=== PATIENT | male | born 1965 | race Caucasian/White ===

== ENCOUNTER 2017-02-16 09:41 | Emergency (ER) | payer BC, OTHER, SELFPAY ==
[~2017-02-16] VITALS: Ht 175.3 cm; Wt 93.2 kg
[~2017-02-16 09:41] MED LIST: /MELO7TA PO; CARI350T19 PO; FLEX10TA2 PO; HYDR7.5T38 PO; NICO21DI26 TD; TYLE325T5 PO; ZANT150T PO; [UNRECOGNIZED DRUG - OTHER] PO
[2017-02-16] MEDS ORDERED: MORP15TA2 PO (09:53)
[2017-02-16 11:21] LABS: BASO % 0.7 % (0.0-1.0); EOS # 0.1 K/mm3 (0.0-0.50); EOS % 1.4 % (0.0-3.0); LARGE UNSTAINED CELL # 0.3 K/mm3 (0.0-0.4); LARGE UNSTAINED CELL % 3.2 % (0.0-4.0); LYMPH # 2.3 K/mm3 (1.5-4.5); LYMPH % 25.4 % (24.0-44.0); MEAN CORPUSCULAR HEMOGLOBIN 31.7 pg (27.0-33.0); MEAN CORPUSCULAR HGB CONC 35.3 g/dl (32.0-36.5); MEAN CORPUSCULAR VOLUME 89.8 fl (80.0-96.0); MONO # 0.5 K/mm3 (0.0-0.8); MONO % 5.7 % (0.0-5.0); NEUTROPHILS # 5.3 K/mm3 (1.8-7.7); NEUTROPHILS % 63.6 % (36.0-66.0); PLATELET COUNT, AUTOMATED 266 k/mm3 (150-450); RED CELL DISTRIBUTION WIDTH 13.1 % (11.5-14.5); WHITE BLOOD COUNT 8.2 K/mm3 (4.0-10.0)
[2017-02-16 11:34] LABS: ANION GAP 8 MEQ/L (8-16); BLOOD UREA NITROGEN 11 MG/DL (7-18); CALCIUM LEVEL 8.6 MG/DL (8.5-10.1); CARBON DIOXIDE LEVEL 27 MEQ/L (21-32); CHLORIDE LEVEL 104 MEQ/L (98-107); GLOMERULAR FILTRATION RATE > 60.0 (>56); GLUCOSE, FASTING 103 MG/DL (70-105); POTASSIUM SERUM 3.6 MEQ/L (3.5-5.1); SODIUM LEVEL 139 MEQ/L (136-145)
[2017-02-16 11:52] LABS: ERYTHROCYTE SEDIMENTATION RATE 15 mm/hr (0-20)
[2017-02-16] MEDS ORDERED: BACT800T5 PO (11:58)
[2017-02-16] MEDS ORDERED: BACTRIM 160MG/800MG DS TAB PO ONE (12:00)
[2017-02-16 12:05] VITALS: BP 131/74
--- NOTE | 2017-02-16 17:47 | REP ---
Left knee series: Five views. History: Question foreign body anteriorly at the knee. Question infectious changes. Findings: There is soft-tissue swelling over the anterior tibial apophysis and over the anterior aspect of the patellar tendon on lateral film. No soft tissue gas or opaque foreign body is seen. There is some vascular calcification in the proximal calf. Bones, joints, and soft tissues are otherwise unremarkable. Mild patellar spurring is seen on the sunrise view. Impression: Soft-tissue swelling anterior to the patellar tendon and anterior to the tibial apophysis. No foreign body or soft tissue gas seen. Mild patellar spurring. Otherwise negative. Signed by Lionel Trevino MD 02/20/2017 08:08 A
== END 2017-02-16 12:09 | disposition home or self-care (01) ==
LOC: M ED 09:41
DX: L03.116 Cellulitis of left lower limb (principal); M76.9 Unspecified enthesopathy, lower limb, excluding foot; G89.29 Other chronic pain; F17.200 Nicotine dependence, unspecified, uncomplicated

== ENCOUNTER → 2017-11-06 | Outpatient (REF) | payer OTHER ==
[2017-11-06 15:04] LABS: VALPROIC ACID (DEPAKOTE) 30.1 UG/ML (50.0-100.0)
== END ==
LOC: M LAB REF 14:03
DX: Z51.81 Encounter for therapeutic drug level monitoring (principal)

== ENCOUNTER → 2018-07-30 | Outpatient (CLI) | payer MEDICAID, OTHER ==
[~2018-07-30] MED LIST changes: +BACT800T5 PO; +MORP15TA2 PO
[2018-07-30 18:53] LABS: HEMATOCRIT 44.9 % (42.0-52.0); HEMOGLOBIN 15.4 g/dl (13.5-17.5); MEAN CORPUSCULAR HEMOGLOBIN 31.6 pg (27.0-33.0); MEAN CORPUSCULAR HGB CONC 34.3 g/dl (32.0-36.5); MEAN CORPUSCULAR VOLUME 92.2 fl (80.0-96.0); PLATELET COUNT, AUTOMATED 289 10^3/uL (150-450); RED BLOOD COUNT 4.87 10^6/uL (4.30-6.10); WHITE BLOOD COUNT 10.4 10^3/uL (4.0-10.0)
[2018-07-30 19:20] LABS: ALT/SGPT 18 U/L (12-78); BILIRUBIN,TOTAL 0.5 MG/DL (0.2-1.0); BLOOD UREA NITROGEN 13 MG/DL (7-18); CALCIUM LEVEL 8.7 MG/DL (8.5-10.1); CARBON DIOXIDE LEVEL 28 MEQ/L (21-32); CHLORIDE LEVEL 102 MEQ/L (98-107); CREATININE FOR GFR 0.89 MG/DL (0.70-1.30); GLOMERULAR FILTRATION RATE > 60.0 (>56); GLUCOSE, FASTING 96 MG/DL (70-100); POTASSIUM SERUM 4.1 MEQ/L (3.5-5.1); SODIUM LEVEL 137 MEQ/L (136-145); TOTAL PROTEIN 7.4 GM/DL (6.4-8.2)
[2018-07-30 21:48] LABS: CHLAMYDIA DNA AMPLIFICATION NEGATIVE (NEGATIVE); GC DNA AMPLIFICATION NEGATIVE (NEGATIVE)
[2018-07-31 09:27] LABS: HEPATITIS B SURFACE ANTIGEN NEGATIVE (NEGATIVE)
[2018-07-31 09:56] LABS: HIV 1&2 SCREEN CENTAUR NEGATIVE (NEGATIVE)
== END ==
LOC: M LAB 18:21
PROVIDERS: ATTEND Family Medicine
DX: F11.20 Opioid dependence, uncomplicated (principal)

== ENCOUNTER 2018-08-24 17:00 | Inpatient (IN) | payer MEDICAID, OTHER ==
[~2018-08-24] VITALS: Ht 172.7 cm; Wt 95.5 kg
[2018-08-24] MEDS ORDERED: METH10CO PO (17:04)
[2018-08-24] MEDS: IPRATROPIUM 0.5MG/ALBUTEROL 2.5MG INH SOL UD 3ML (DUONEB)(J7620) NEB PRN ×3 (17:26→18:17)
[2018-08-24 17:28] LABS: BASO % 0.2 % (0.0-1.0); EOS % 0.1 % (0.0-3.0); HEMOGLOBIN 14.6 g/dl (13.5-17.5); LYMPH # 2.8 10^3/uL (1.5-4.5); LYMPH % 23.1 % (24.0-44.0); MEAN CORPUSCULAR HEMOGLOBIN 30.2 pg (27.0-33.0); MONO # 1.3 10^3/uL (0.0-0.8); MONO % 11.1 % (0.0-5.0); NEUTROPHILS # 7.8 10^3/uL (1.8-7.7); PLATELET COUNT, AUTOMATED 202 10^3/uL (150-450); RED BLOOD COUNT 4.83 10^6/uL (4.30-6.10)
[2018-08-24 17:39] LABS: INR 1.09; PROTHROMBIN TIME 14.2 SECONDS (12.1-14.4)
[2018-08-24 17:41] LABS: ABG BASE EXCESS 4.6 (-2.0-2.0); ABG HCO3 25.6 MEQ/L (22.0-26.0); ABG O2 SATURATION 89.1 % (95.0-99.0); ABG PARTIAL PRESSURE CO2 28.7 mmHg (35.0-45.0); ABG STANDARD HCO3 28.3 MEQ/L (22.0-26.0); ABG TOTAL CO2 26.5 MEQ/L (22.0-29.0); ABG pH (ARTERIAL) 7.569 UNITS (7.350-7.450)
[2018-08-24 17:46] LABS: ABG PARTIAL PRESSURE O2 44.7 mmHg (75.0-100.0)
[2018-08-24 17:55] LABS: ALBUMIN 3.5 GM/DL (3.2-5.2); ALT/SGPT 14 U/L (12-78); BILIRUBIN,DIRECT 0.3 MG/DL (0.0-0.2); BLOOD UREA NITROGEN 7 MG/DL (7-18); CALCIUM LEVEL 8.1 MG/DL (8.5-10.1); CARBON DIOXIDE LEVEL 33 MEQ/L (21-32); CHLORIDE LEVEL 97 MEQ/L (98-107); CK-MB VALUE MASS < 1.0 NG/ML (<3.6); CPK CREATINE PHOSPHOKINASE 100 U/L (39-308); CREATININE FOR GFR 0.86 MG/DL (0.70-1.30); GLOMERULAR FILTRATION RATE > 60.0 (>56); GLUCOSE, FASTING 90 MG/DL (70-100); POTASSIUM SERUM 3.9 MEQ/L (3.5-5.1); SODIUM LEVEL 136 MEQ/L (136-145); TOTAL PROTEIN 7.4 GM/DL (6.4-8.2); TROPONIN I < 0.02 NG/ML (< 0.10)
[2018-08-24 18:05] LABS: ABG BASE EXCESS 5.9 (-2.0-2.0); ABG HCO3 29.1 MEQ/L (22.0-26.0); ABG O2 SATURATION 87.7 % (95.0-99.0); ABG PARTIAL PRESSURE CO2 37.2 mmHg (35.0-45.0); ABG STANDARD HCO3 29.6 MEQ/L (22.0-26.0); ABG TOTAL CO2 30.2 MEQ/L (22.0-29.0); ABG pH (ARTERIAL) 7.511 UNITS (7.350-7.450)
[2018-08-24 18:06] LABS: INFLUENZA A AMPLIFICATION POSITIVE (NEGATIVE); INFLUENZA B AMPLIFICATION NEGATIVE (NEGATIVE)
[2018-08-24 18:07] LABS: ABG PARTIAL PRESSURE O2 45.3 mmHg (75.0-100.0)
[2018-08-24] MEDS ORDERED: methylPREDNISolone INJ 125 MG/2 ML VIAL (J2930) IV ONE (18:30)
[2018-08-24] MEDS ORDERED: IPRATROPIUM 0.5MG/ALBUTEROL 2.5MG INH SOL UD 3ML (DUONEB)(J7620) NEB PRN (19:00)
[2018-08-24] MEDS ORDERED: ACETAMINOPHEN TAB 650MG DOSE (2X325MG) PO PRN (19:00)
[2018-08-24] MEDS ORDERED: ONDANSETRON 4MG/2ML VIAL (J2405) IV PRN (19:00)
[2018-08-24] MEDS: IPRATROPIUM 0.5MG/ALBUTEROL 2.5MG INH SOL UD 3ML (DUONEB)(J7620) NEB SCH (19:59)
[2018-08-24] MEDS ORDERED: NICOTINE 21MG/24HR 1 EA TRANSDERMAL TD ONE (20:00)
[2018-08-24] MEDS: OSELTAMIVIR PHOSPHATE 75 MG CAP (TAMIFLU) PO SCH (21:26)
[2018-08-24 23:35] VITALS: BP 124/80
[2018-08-25 02:00] VITALS: BP 129/74
[2018-08-25] MEDS: IPRATROPIUM 0.5MG/ALBUTEROL 2.5MG INH SOL UD 3ML (DUONEB)(J7620) NEB SCH ×2 (02:00→08:19)
[2018-08-25 06:00] VITALS: BP 134/79
[2018-08-25 06:47] LABS: HEMATOCRIT 41.3 % (42.0-52.0); HEMOGLOBIN 13.8 g/dl (13.5-17.5); MEAN CORPUSCULAR HGB CONC 33.4 g/dl (32.0-36.5); MEAN CORPUSCULAR VOLUME 89.8 fl (80.0-96.0); PLATELET COUNT, AUTOMATED 207 10^3/uL (150-450); WHITE BLOOD COUNT 5.2 10^3/uL (4.0-10.0)
[2018-08-25 07:00] LABS: BLOOD UREA NITROGEN 11 MG/DL (7-18); CALCIUM LEVEL 8.6 MG/DL (8.5-10.1); CARBON DIOXIDE LEVEL 30 MEQ/L (21-32); CHLORIDE LEVEL 98 MEQ/L (98-107); CREATININE FOR GFR 0.84 MG/DL (0.70-1.30); GLOMERULAR FILTRATION RATE > 60.0 (>56); GLUCOSE, FASTING 235 MG/DL (70-100); SODIUM LEVEL 135 MEQ/L (136-145)
[2018-08-25] MEDS: TIOTROPIUM INHALER/CAPSULE (SPIRIVA) INH SCH ×2 (08:00→15:08)
--- NOTE | 2018-08-25 08:10 | REP ---
Portable chest, single AP upright view, 05:50 p.m.: Comparison is 01/11/2013. There are bibasilar infiltrates. The mid and upper lung zones are clear. Cardiac size is normal. The joseph, mediastinum, skeletal structures are unremarkable. Impression: Bibasilar infiltrates. Electronically Signed by Gagandeep Roberto MD 08/25/2018 08:03 A
--- NOTE | 2018-08-25 08:49 | HPE ---
DATE OF ADMISSION: 08/24/2018 CHIEF COMPLAINT: Shortness of breath, cough, malaise, subjective fevers and chills. HISTORY OF PRESENT ILLNESS: This is a 53-year-old gentleman with past medical history of opioid abuse now on methadone and significant smoking history who presents with chief complaint of three day history of malaise, cough, myalgias, wheezing, subjective fevers and chills. Patient reports for the last several days, he has had shortness of breath and difficulty breathing. He feels like he wants to cough but cannot cough out his phlegm. He has also subjectively felt warm and has had chills and audible wheezing. He does not have a regular doctor and does not know of any other significant past medical history. He does have a significant smoking history but has not been diagnosed with chronic obstructive pulmonary disease (COPD). He denies any recent sick contacts and reports that he has received a flu shot in the past year. COURSE IN THE EMERGENCY ROOM: First patient was noted to be hypoxic to 88% on room air and was flu positive. He did receive some nebulizers and steroids without improvement and is being admitted for chronic obstructive pulmonary disease (COPD) exacerbation and flu. REVIEW OF SYSTEMS: Negative 14 out of 14 systems except as noted above. PAST MEDICAL HISTORY: History of opioid abuse on methadone program. PAST SURGICAL HISTORY: He has had bilateral shoulder surgery. Spinal fusion surgery. MEDICATIONS: Patient's home medication is: - methadone 40 mg daily ALLERGIES: No known drug allergies. SOCIAL HISTORY: Patient smoked two packs a day for 40 years. He lives with his . He does have a history of opioid abuse but has now been clean for 1 year and is on the methadone program. He denies any alcohol abuse. FAMILY HISTORY: Father had lung cancer. PHYSICAL EXAMINATION: On exam, patient's vitals, he is currently afebrile to 98, blood pressure 136/68, heart rate of 73, respirating 19, sating 88% on room air. General: He is in no acute distress and breathing without difficulty although he does appear uncomfortable. HEENT: Oropharynx clear. Cardiovascular: Regular rate and rhythm. No murmurs, rubs, gallops. Lungs: Patient has some expiratory wheezing and poor air fluid throughout. Abdomen is soft, nontender, nondistended. Positive bowel sounds. Extremities: No clubbing, cyanosis or edema. Neuro: He is alert and oriented times three. Follows commands. No focal neurologic deficit. Skin intact. Psych: Mood stable. LABS: White count 12, hemoglobin 14, platelets of 202. Chemistry reveals potassium of 3.9, creatinine of 0.86 Flu A is positive. Blood gas shows initially pH 7.56, pCO2 of 28, pO2 of 44. Repeat ABG 7.51, 37, 45. IMAGING: Patient had a chest x-ray done and final read is currently pending but on preliminary review does not appear to have an elevated infiltrate. ASSESSMENT AND PLAN: This is a 53-year-old gentleman with past medical history of opioid abuse on methadone and heavy smoking history who presents with chief complaint of cough, malaise, shortness of breath, subjective fevers and chills, found to be flu A positive. PROBLEMS: 1. Acute hypoxemic respiratory failure likely secondary to flu in the setting of chronic obstructive pulmonary disease (COPD) exacerbation. Patient's reason for admission is that he had an oxygen requirement which is likely secondary to his flu in the setting of heavy smoking use and undiagnosed chronic obstructive pulmonary disease (COPD). I am placing him on nebulizers around the clock and starting him on Tamiflu. He will have supplemental oxygen. I am also starting him on prednisone 60 mg daily as there is likely a component of chronic obstructive pulmonary disease (COPD) exacerbation. No antibiotics are indicated at this time. We will continue to monitor the patient for clinical improvement. He will also receive Tamiflu as he is within the window for Tamiflu treatment. 2. History of opioid abuse. We will continue his home methadone. 3. Smoking cessation. Patient was counseled on his heavy smoking use and I encouraged smoking cessation. I will place the smoking cessation counseling order and then place him on the patch. DISPOSITION PLANNING: Patient will need a primary care referral on discharge. He likely has undiagnosed chronic obstructive pulmonary disease (COPD) and will likely need outpatient PFTs upon discharge. Deep venous thrombosis (DVT) prophylaxis, he is on Lovenox.
[2018-08-25] MEDS ORDERED: predniSONE 20 MG TAB PO SCH (09:00)
[2018-08-25] MEDS: METHADONE 10 MG TAB (S0109) PO SCH (09:20)
[2018-08-25] MEDS: ENOXAPARIN 40 MG/0.4 ML SYRINGE (J1650) SC SCH (09:20)
[2018-08-25] MEDS: OSELTAMIVIR PHOSPHATE 75 MG CAP (TAMIFLU) PO SCH ×2 (09:21→21:42)
[2018-08-25 10:00] VITALS: BP 117/63
[2018-08-25] MEDS: LEVALBUTEROL 1.25 MG/0.5 ML CONCENTRATE NEB INH SCH ×4 (12:00→23:49)
[2018-08-25] MEDS ORDERED: LEVALBUTEROL 1.25 MG/0.5 ML CONCENTRATE NEB INH PRN (12:30)
[2018-08-25 13:00] VITALS: BP 139/69
[2018-08-25] MEDS: methylPREDNISolone INJ 125 MG/2 ML VIAL (J2930) IV SCH ×2 (13:26→18:45)
[2018-08-25] MEDS: guaiFENesin ER 600 MG TAB PO SCH ×2 (13:26→21:42)
--- NOTE | 2018-08-25 13:42 | IPNPDOC ---
Date Seen The patient was seen on 08/25/18. Progress Note SUBJECTIVE: C/O cough nonproductive. "hard to breathe," and "can't get it out." no c/o chills. sob better but not back to baseline. [place] on walking from bed to bathroom. no chest pain. PHYSICAL EXAMINATION: vitals: PLS SEE BELOW General: He is in no acute distress and breathing without difficulty although he does appear uncomfortable. HEENT: Oropharynx clear. Cardiovascular: Regular rate and rhythm. No murmurs, rubs, gallops. Lungs: Patient has some expiratory wheezing and poor air fluid throughout. Abdomen is soft, nontender, nondistended. Positive bowel sounds. Extremities: No clubbing, cyanosis or edema. Neuro: He is alert and oriented times three. Follows commands. No focal neurologic deficit. Skin intact. Psych: Mood stable. LABS: PLS SEE BELOW IMAGING: Patient had a chest x-ray done and final read is currently pending but on preliminary review does not appear to have an elevated infiltrate. ASSESSMENT AND PLAN: This is a 53-year-old gentleman with past medical history of opioid abuse on methadone and heavy smoking history who presents with chief complaint of cough, malaise, shortness of breath, subjective fevers and chills, found to be flu A positive. Acute hypoxemic respiratory failure likely secondary to flu in the setting of chronic obstructive pulmonary disease (COPD) exacerbation. Patient's reason for admission is that he had an oxygen requirement which is likely secondary to his flu in the setting of heavy smoking use and undiagnosed chronic obstructive pulmonary disease (COPD). supplemental o2 for goal 88-92%, steroids, nebs, tamiflu INFLUENZA A droplet precautions tamiflu COPD EXACERBATION significant wheezing on po prednisone changed to iv solumedrol tachycardic on albuterol, changed to xopenex History of opioid abuse. We will continue his home methadone. Smoking cessation. counselled. patch offered. VS, I&O, 24H, Fishbone Vital Signs/I&O Vital Signs Date Time Temp Pulse Resp B/P (MAP) Pulse Ox O2 Delivery O2 Flow Rate FiO2 08/25/18 10:17 2.0 08/25/18 10:00 97.9 75 20 117/63 (81) 91 08/24/18 23:17 Nasal Cannula I&O- Last 24 Hours up to 6 AM 08/25/18 06:00 Intake Total 480 ml Output Total 500 ml Balance -20 ml Laboratory Data 24H LABS Laboratory Tests 2 08/24/18 17:21: Immature Granulocyte % (Auto) 0.5, White Blood Count 12.0H, Red Blood Count 4.83, Hemoglobin 14.6, Hematocrit 43.0, Mean Corpuscular Volume 89.0, Mean Corpuscular Hemoglobin 30.2, Mean Corpuscular Hemoglobin Concent 34.0, Red Cell Distribution Width 13.0, Platelet Count 202, Neutrophils (%) (Auto) 65.0, Lymphocytes (%) (Auto) 23.1L, Monocytes (%) (Auto) 11.1H, Eosinophils (%) (Auto) 0.1, Basophils (%) (Auto) 0.2, Neutrophils # (Auto) 7.8H, Lymphocytes # (Auto) 2.8, Monocytes # (Auto) 1.3H, Eosinophils # (Auto) 0.0, Basophils # (Auto) 0.0, Nucleated Red Blood Cells % (auto) 0.0, Prothrombin Time 14.2, Prothromb Time International Ratio 1.09, Anion Gap 6L, Glomerular Filtration Rate > 60.0, Calcium Level 8.1L, Aspartate Amino Transf (AST/SGOT) 24, Alanine Aminotransferase (ALT/SGPT) 14, Alkaline Phosphatase 61, Total Bilirubin 1.0, Direct Bilirubin 0.3H, Total Creatine Kinase 100, Creatine Kinase MB < 1.0, Creatine Kinase MB Relative Index 1.00, Troponin I < 0.02, Total Protein 7.4, Albumin 3.5, Albumin/Globulin Ratio 0.90L 08/24/18 17:26: Blood Gas Bicarbonate Standard 28.3H, Arterial Blood pH 7.569H, Arterial Blood Partial Pressure CO2 28.7L, Arterial Blood Partial Pressure O2 44.7*L, Arterial Blood Total CO2 26.5, Arterial Blood HCO3 25.6, Arterial Blood Base Excess 4.6H, Arterial Blood Oxygen Saturation 89.1L 08/24/18 17:27: Influenza Type A (RT-PCR) POSITIVEH, Influenza Type B (RT-PCR) NEGATIVE 08/24/18 17:53: Blood Gas Bicarbonate Standard 29.6H, Arterial Blood pH 7.511H, Arterial Blood Partial Pressure CO2 37.2, Arterial Blood Partial Pressure O2 45.3*L, Arterial Blood Total CO2 30.2H, Arterial Blood HCO3 29.1H, Arterial Blood Base Excess 5.9H, Arterial Blood Oxygen Saturation 87.7L 08/25/18 05:51: Nucleated Red Blood Cells % (auto) 0.0, Anion Gap 7L, Glomerular Filtration Rate > 60.0, Blood Urea Nitrogen 11#, Creatinine 0.84, Sodium Level 135L, Potassium Level 4.0, Chloride Level 98, Carbon Dioxide Level 30, Calcium Level 8.6 CBC/BMP Laboratory Tests 08/24/18 17:21 Red Blood Count 4.83, Mean Corpuscular Volume 89.0, Mean Corpuscular Hemoglobin 30.2, Mean Corpuscular Hemoglobin Concent 34.0, Red Cell Distribution Width 13.0, Neutrophils (%) (Auto) 65.0, Lymphocytes (%) (Auto) 23.1 L, Monocytes (%) (Auto) 11.1 H, Eosinophils (%) (Auto) 0.1, Basophils (%) (Auto) 0.2, Neutrophils # (Auto) 7.8 H, Lymphocytes # (Auto) 2.8, Monocytes # (Auto) 1.3 H, Eosinophils # (Auto) 0.0, Basophils # (Auto) 0.0 08/25/18 05:51 Red Blood Count 4.60, Mean Corpuscular Volume 89.8, Mean Corpuscular Hemoglobin 30.0, Mean Corpuscular Hemoglobin Concent 33.4, Red Cell Distribution Width 13.0, Calcium Level 8.6 Microbiology Microbiology 08/24/18 Blood Culture, Received Pending 08/24/18 Blood Culture, Received Pending DOROTA WASHINGTON MD Aug 25, 2018 13:41
[2018-08-25 20:00] VITALS: BP 131/60
--- NOTE | 2018-08-25 20:56 | ECGEPIP ---
Stationary ECG Study [facility] - ED Test Date: 2018-08-24 Pat Name: MARIE ESCOBAR Department: Room: - Gender: M Lead Machinist: otf : 1965 Requested By: RIK Genao Order Number: [id number] Reading MD: Jenny Awan Measurements Intervals Odon Rate: 72 P: 74 IA: 154 QRS: 60 QRSD: 98 T: 52 QT: 400 QTc: 440 Interpretive Statements SINUS RHYTHM NSTTW ABNORMALITY SIMILAR 01/11/13 Electronically Signed On 08-25-2018 20:56:03 EDT by Jenny Awan
[2018-08-25] MEDS ORDERED: NICOTINE 21MG/24HR 1 EA TRANSDERMAL TD ONE (21:00)
[2018-08-26] VITALS: BP 131/66
[2018-08-26] MEDS: methylPREDNISolone INJ 125 MG/2 ML VIAL (J2930) IV SCH ×4 (00:22→17:47)
[2018-08-26 04:00] VITALS: BP 130/61
[2018-08-26] MEDS: LEVALBUTEROL 1.25 MG/0.5 ML CONCENTRATE NEB INH SCH ×6 (04:28→23:31)
[2018-08-26] MEDS: TIOTROPIUM INHALER/CAPSULE (SPIRIVA) INH SCH (08:39)
[2018-08-26] MEDS: NICOTINE 21MG/24HR 1 EA TRANSDERMAL TD SCH (09:05)
[2018-08-26] MEDS: ENOXAPARIN 40 MG/0.4 ML SYRINGE (J1650) SC SCH (09:05)
[2018-08-26] MEDS: OSELTAMIVIR PHOSPHATE 75 MG CAP (TAMIFLU) PO SCH ×2 (09:06→20:54)
[2018-08-26] MEDS: guaiFENesin ER 600 MG TAB PO SCH ×2 (09:06→20:54)
[2018-08-26] MEDS: METHADONE 10 MG TAB (S0109) PO SCH (09:06)
[2018-08-26 10:00] VITALS: BP 126/64
[2018-08-26 14:00] VITALS: BP 130/62
[2018-08-26 18:00] VITALS: BP 134/71
--- NOTE | 2018-08-26 18:16 | IPNPDOC ---
Date Seen The patient was seen on 08/26/18. Progress Note SUBJECTIVE: breathing is improved but still difficult to expectorate sputum despite mucinex. no fever or chills. some GALVEZ on walking around the room. no c/o chills. sob better but not back to baseline. no chest pain. PHYSICAL EXAMINATION: vitals: PLS SEE BELOW General: He is in no acute distress and breathing without difficulty although he does appear uncomfortable. HEENT: Oropharynx clear. Cardiovascular: Regular rate and rhythm. No murmurs, rubs, gallops. Lungs: Patient has some expiratory wheezing and poor air fluid throughout. Abdomen is soft, nontender, nondistended. Positive bowel sounds. Extremities: No clubbing, cyanosis or edema. Neuro: He is alert and oriented times three. Follows commands. No focal neurologic deficit. Skin intact. Psych: Mood stable. LABS: PLS SEE BELOW IMAGING: Patient had a chest x-ray done and final read is currently pending but on preliminary review does not appear to have an elevated infiltrate. ASSESSMENT AND PLAN: This is a 53-year-old gentleman with past medical history of opioid abuse on methadone and heavy smoking history who presents with chief complaint of cough, malaise, shortness of breath, subjective fevers and chills, found to be flu A positive. Acute hypoxemic respiratory failure likely secondary to flu in the setting of chronic obstructive pulmonary disease (COPD) exacerbation. Patient's reason for admission is that he had an oxygen requirement which is likely secondary to his flu in the setting of heavy smoking use and undiagnosed chronic obstructive pulmonary disease (COPD). supplemental o2 for goal 88-92%, steroids, nebs, tamiflu INFLUENZA A droplet precautions tamiflu COPD EXACERBATION significant wheezing on po prednisone changed to iv solumedrol tachycardic on albuterol, changed to xopenex History of opioid abuse. We will continue his home methadone. Smoking cessation. counselled. patch offered. VS, I&O, 24H, Fishbone Vital Signs/I&O Vital Signs Date Time Temp Pulse Resp B/P (MAP) Pulse Ox O2 Delivery O2 Flow Rate FiO2 08/26/18 18:00 99.3 80 18 134/71 (92) 92 08/26/18 14:00 2.0 08/24/18 23:17 Nasal Cannula I&O- Last 24 Hours up to 6 AM 08/26/18 06:00 Intake Total 1450 ml Output Total 0 ml Balance 1450 ml Laboratory Data Microbiology Microbiology 08/24/18 Blood Culture - Preliminary, Resulted No Growth after 48 hours. All Specime... 08/24/18 Blood Culture - Preliminary, Resulted No Growth after 48 hours. All Specime... DOROTA WASHINGTON MD Aug 26, 2018 18:16
[2018-08-26 20:00] VITALS: BP 120/57
[2018-08-27] MEDS: methylPREDNISolone INJ 125 MG/2 ML VIAL (J2930) IV SCH ×2 (01:10→06:05)
[2018-08-27] MEDS: LEVALBUTEROL 1.25 MG/0.5 ML CONCENTRATE NEB INH SCH ×6 (04:00→23:54)
[2018-08-27 06:00] VITALS: BP 131/73
[2018-08-27] MEDS: TIOTROPIUM INHALER/CAPSULE (SPIRIVA) INH SCH (09:19)
[2018-08-27 10:00] VITALS: BP 136/67
[2018-08-27] MEDS: METHADONE 10 MG TAB (S0109) PO SCH (10:17)
[2018-08-27] MEDS: OSELTAMIVIR PHOSPHATE 75 MG CAP (TAMIFLU) PO SCH ×2 (10:18→22:57)
[2018-08-27] MEDS: SENOKOT S TAB PO SCH ×2 (10:18→22:57)
[2018-08-27] MEDS: NICOTINE 21MG/24HR 1 EA TRANSDERMAL TD SCH (10:18)
[2018-08-27] MEDS: guaiFENesin ER 600 MG TAB PO SCH ×2 (10:18→22:57)
[2018-08-27] MEDS: ENOXAPARIN 40 MG/0.4 ML SYRINGE (J1650) SC SCH (10:19)
[2018-08-27 14:00] VITALS: BP 138/74
[2018-08-27] MEDS: methylPREDNISolone INJ 40 MG/1 ML VIAL (J2920) IV SCH ×2 (15:06→22:58)
[2018-08-27 18:00] VITALS: BP 144/80
--- NOTE | 2018-08-27 18:33 | IPNPDOC ---
Text Note Date of Service The patient was seen on 08/27/18. NOTE Subjective: This is a 53-year-old gentleman with past medical history of opioid abuse on methadone and heavy smoking history who presents with chief complaint of cough, malaise, shortness of breath, subjective fevers and chills, found to be flu A positive. Patient was admitted to hospitalist service for suspected COPD exacerbation secondary to influenza A. Patient was seen and examined at the bedside. Patient note that his breathing is doing much better. He denies chest pain or palpitations. He notes a cough that is not productive. Denies any nausea, vomiting, abdominal pain, constipation, diarrhea or discomfort with urination. Objective: Vitals (See below) General: Lying in bed, no acute distress, comfortable, AAOx3 HEENT: NC, AT CVS: RRR, +S1S2 Lungs: Fair air entry b/l, auscultation without any wheezing, rhonchi or rales Abdomen: Soft, ND, NT Extremities: - Edema, - Calf tenderness Assessment and plan: Shortness of breath - likely 2/2 acute hypoxic respiratory failure - likely 2/2 acute COPD exacerbation - likely 2/2 influenza A - Presented to the ER with shortness of breath and wheezing - Clinically has had significant improvement - Physical without any significant adventitious lung sounds - Labs unremarkable - We will reduce dose of Solu-Medrol - Continue with Oseltamivir (Day #4) - c/w inhaled therapy is ordered Tachycardic on albuterol - Has been changed to Xopenex Smoking cessation - Advised patient about smoking cessation - Offered nicotine patch DVT prophylaxis - c/w Lovenox VS,Fishbone, I+O VS, Fishbone, I+O Vital Signs Date Time Temp Pulse Resp B/P (MAP) Pulse Ox O2 Delivery O2 Flow Rate FiO2 08/27/18 14:00 98.4 84 17 138/74 (95) 93 08/26/18 14:00 2.0 08/24/18 23:17 Nasal Cannula I&O- Last 24 Hours up to 6 AM 08/27/18 06:00 Intake Total 1560 ml Balance 1560 ml MAY SERRA MD Aug 27, 2018 18:33
[2018-08-27 20:00] VITALS: BP 128/64
[2018-08-28] VITALS: BP 149/73
[2018-08-28 04:00] VITALS: BP 135/79
[2018-08-28] MEDS: LEVALBUTEROL 1.25 MG/0.5 ML CONCENTRATE NEB INH SCH ×5 (04:00→20:53)
[2018-08-28] MEDS: methylPREDNISolone INJ 40 MG/1 ML VIAL (J2920) IV SCH ×3 (06:42→22:23)
[2018-08-28 08:00] VITALS: BP 138/70
[2018-08-28 08:20] LABS: BASO # 0.1 10^3/uL (0.0-0.2); BASO % 0.6 % (0.0-1.0); HEMATOCRIT 39.8 % (42.0-52.0); HEMOGLOBIN 13.3 g/dl (13.5-17.5); LYMPH # 1.8 10^3/uL (1.5-4.5); LYMPH % 13.3 % (24.0-44.0); MEAN CORPUSCULAR HEMOGLOBIN 30.2 pg (27.0-33.0); MEAN CORPUSCULAR HGB CONC 33.4 g/dl (32.0-36.5); MEAN CORPUSCULAR VOLUME 90.2 fl (80.0-96.0); MONO # 0.9 10^3/uL (0.0-0.8); MONO % 6.5 % (0.0-5.0); NEUTROPHILS # 10.5 10^3/uL (1.8-7.7); NEUTROPHILS % 76.5 % (36.0-66.0); PLATELET COUNT, AUTOMATED 287 10^3/uL (150-450); RED BLOOD COUNT 4.41 10^6/uL (4.30-6.10); WHITE BLOOD COUNT 13.7 10^3/uL (4.0-10.0)
[2018-08-28 08:34] LABS: BLOOD UREA NITROGEN 19 MG/DL (7-18); CALCIUM LEVEL 8.2 MG/DL (8.5-10.1); CARBON DIOXIDE LEVEL 27 MEQ/L (21-32); CHLORIDE LEVEL 106 MEQ/L (98-107); CREATININE FOR GFR 0.67 MG/DL (0.70-1.30); GLOMERULAR FILTRATION RATE > 60.0 (>56); GLUCOSE, FASTING 131 MG/DL (70-100); MAGNESIUM LEVEL 2.5 MG/DL (1.8-2.4); POTASSIUM SERUM 4.2 MEQ/L (3.5-5.1); SODIUM LEVEL 139 MEQ/L (136-145)
[2018-08-28] MEDS: SENOKOT S TAB PO SCH ×2 (08:35→20:30)
[2018-08-28] MEDS: ENOXAPARIN 40 MG/0.4 ML SYRINGE (J1650) SC SCH (08:35)
[2018-08-28] MEDS: guaiFENesin ER 600 MG TAB PO SCH ×2 (08:35→20:31)
[2018-08-28] MEDS: OSELTAMIVIR PHOSPHATE 75 MG CAP (TAMIFLU) PO SCH ×2 (08:35→20:30)
[2018-08-28] MEDS: METHADONE 10 MG TAB (S0109) PO SCH (08:36)
[2018-08-28] MEDS: NICOTINE 21MG/24HR 1 EA TRANSDERMAL TD SCH (08:36)
[2018-08-28] MEDS: TIOTROPIUM INHALER/CAPSULE (SPIRIVA) INH SCH (08:41)
[2018-08-28 12:00] VITALS: BP 127/68
[2018-08-28 16:00] VITALS: BP 129/68
--- NOTE | 2018-08-28 16:54 | IPNPDOC ---
Text Note Date of Service The patient was seen on 08/28/18. NOTE Subjective: This is a 53-year-old gentleman with past medical history of opioid abuse on methadone and heavy smoking history who presents with chief complaint of cough, malaise, shortness of breath, subjective fevers and chills, found to be flu A positive. Patient was admitted to hospitalist service for suspected COPD exacerbation secondary to influenza A. Patient was seen and examined at the bedside. Patient notes that her breathing is not significantly changed from yesterday. They still notes a cough. They deny any chest pain, palpitations, nausea, vomiting, abdominal pain, constipation, diarrhea or any discomfort with urination Objective: Vitals (See below) General: Lying in bed, no acute distress, comfortable, AAOx3 HEENT: NC, AT CVS: RRR, +S1S2 Lungs: Fair air entry b/l, upon auscultation this morning. There appears to be wheezing mildly appreciated at both lung valente. No evidence of rhonchi or rales Abdomen: Soft, distended without tenderness Extremities: No evidence of edema, - Calf tenderness Assessment and plan: Shortness of breath - likely 2/2 acute hypoxic respiratory failure - likely 2/2 acute COPD exacerbation - likely 2/2 influenza A - Presented to the ER with shortness of breath and wheezing - Clinically has had significant improvement; however, not significant change from yesterday - Physical with wheezing bilaterally - Labs unremarkable - At this time. We will continue the same dose of Solu-Medrol until wheezing improves - Continue with Oseltamivir (Day #5) - c/w inhaled therapy is ordered Tachycardic on albuterol - Has been changed to Xopenex Smoking cessation - Advised patient about smoking cessation - Offered nicotine patch DVT prophylaxis - c/w Lovenox VS,Fishbone, I+O VS, Fishbone, I+O Laboratory Tests 08/28/18 07:57 Red Blood Count 4.41, Mean Corpuscular Volume 90.2, Mean Corpuscular Hemoglobin 30.2, Mean Corpuscular Hemoglobin Concent 33.4, Red Cell Distribution Width 13.1, Neutrophils (%) (Auto) 76.5 H, Lymphocytes (%) (Auto) 13.3 L, Monocytes (%) (Auto) 6.5 H, Eosinophils (%) (Auto) 0.0, Basophils (%) (Auto) 0.6, Neutrophils # (Auto) 10.5 H, Lymphocytes # (Auto) 1.8, Monocytes # (Auto) 0.9 H, Eosinophils # (Auto) 0.0, Basophils # (Auto) 0.1, Calcium Level 8.2 L Vital Signs Date Time Temp Pulse Resp B/P (MAP) Pulse Ox O2 Delivery O2 Flow Rate FiO2 08/28/18 08:36 20 08/28/18 08:00 98.3 62 138/70 (92) 94 08/26/18 14:00 2.0 08/24/18 23:17 Nasal Cannula I&O- Last 24 Hours up to 6 AM 08/28/18 06:00 Intake Total 2350 ml Output Total 2475 ml Balance -125 ml MAY SERRA MD Aug 28, 2018 16:54
[2018-08-28 20:08] VITALS: BP 142/73
[2018-08-29 00:03] VITALS: BP 158/88
[2018-08-29 04:00] VITALS: BP 152/78
[2018-08-29] MEDS: methylPREDNISolone INJ 40 MG/1 ML VIAL (J2920) IV SCH ×2 (06:18→18:09)
[2018-08-29 07:11] LABS: HEMATOCRIT 40.3 % (42.0-52.0); HEMOGLOBIN 13.6 g/dl (13.5-17.5); MEAN CORPUSCULAR HEMOGLOBIN 29.7 pg (27.0-33.0); MEAN CORPUSCULAR HGB CONC 33.7 g/dl (32.0-36.5); PLATELET COUNT, AUTOMATED 327 10^3/uL (150-450); RED BLOOD COUNT 4.58 10^6/uL (4.30-6.10); WHITE BLOOD COUNT 14.5 10^3/uL (4.0-10.0)
[2018-08-29 07:31] LABS: BLOOD UREA NITROGEN 19 MG/DL (7-18); CALCIUM LEVEL 8.3 MG/DL (8.5-10.1); CARBON DIOXIDE LEVEL 25 MEQ/L (21-32); CHLORIDE LEVEL 105 MEQ/L (98-107); CREATININE FOR GFR 0.69 MG/DL (0.70-1.30); GLOMERULAR FILTRATION RATE > 60.0 (>56); GLUCOSE, FASTING 121 MG/DL (70-100); MAGNESIUM LEVEL 2.6 MG/DL (1.8-2.4); POTASSIUM SERUM 4.5 MEQ/L (3.5-5.1); SODIUM LEVEL 137 MEQ/L (136-145)
[2018-08-29] MEDS: TIOTROPIUM INHALER/CAPSULE (SPIRIVA) INH SCH (07:55)
[2018-08-29] MEDS: LEVALBUTEROL 1.25 MG/0.5 ML CONCENTRATE NEB INH SCH ×6 (07:55→23:32)
[2018-08-29 08:00] VITALS: BP 137/72
[2018-08-29] MEDS: guaiFENesin ER 600 MG TAB PO SCH ×2 (09:18→20:29)
[2018-08-29] MEDS: SENOKOT S TAB PO SCH ×2 (09:18→20:29)
[2018-08-29] MEDS: METHADONE 10 MG TAB (S0109) PO SCH (09:18)
[2018-08-29] MEDS: OSELTAMIVIR PHOSPHATE 75 MG CAP (TAMIFLU) PO SCH ×2 (09:18→20:29)
[2018-08-29] MEDS: NICOTINE 21MG/24HR 1 EA TRANSDERMAL TD SCH (09:19)
[2018-08-29] MEDS: ENOXAPARIN 40 MG/0.4 ML SYRINGE (J1650) SC SCH (09:19)
[2018-08-29 12:00] VITALS: BP 128/59
--- NOTE | 2018-08-29 13:33 | IPNPDOC ---
Text Note Date of Service The patient was seen on 08/29/18. NOTE Subjective: This is a 53-year-old gentleman with past medical history of opioid abuse on methadone and heavy smoking history who presents with chief complaint of cough, malaise, shortness of breath, subjective fevers and chills, found to be flu A positive. Patient was admitted to hospitalist service for suspected COPD exacerbation secondary to influenza A. Patient was seen and examined at the bedside. Per the patient has no complaints of chest pain, shortness of breath or palpitations. He notes that his cough is subsiding. Denies any nausea, vomiting, abdominal pain, constipation, diarrhea or any urinary discomfort Objective: Vitals (See below) General: Lying in bed, no acute distress, comfortable, AAOx3 HEENT: NC, AT CVS: RRR, +S1S2 Lungs: Fair air entry b/l, upon auscultation, there does not appear to be any wheezing, rhonchi or rales Abdomen: Soft, nondistended, again without tenderness Extremities: No evidence of lower extremity edema, - Calf tenderness Assessment and plan: Shortness of breath - likely 2/2 acute hypoxic respiratory failure - likely 2/2 acute COPD exacerbation - likely 2/2 influenza A - Presented to the ER with shortness of breath and wheezing - Clinically has had significant improvement; however, not significant change from yesterday - Physical with wheezing bilaterally - Labs unremarkable - Will reduce dose of Solu-Medrol; Will anticipate transition to prednisone tomorrow - Continue with Oseltamivir (Day #6) - c/w inhaled therapy is ordered Tachycardic on albuterol - Has been changed to Xopenex Smoking cessation - Advised patient about smoking cessation - Offered nicotine patch DVT prophylaxis - c/w Lovenox VS,Fishbone, I+O VS, Fishbone, I+O Laboratory Tests 08/29/18 06:53 Red Blood Count 4.58, Mean Corpuscular Volume 88.0, Mean Corpuscular Hemoglobin 29.7, Mean Corpuscular Hemoglobin Concent 33.7, Red Cell Distribution Width 13.0, Calcium Level 8.3 L Vital Signs Date Time Temp Pulse Resp B/P (MAP) Pulse Ox O2 Delivery O2 Flow Rate FiO2 08/29/18 12:00 99.0 71 18 128/59 (82) 95 08/26/18 14:00 2.0 08/24/18 23:17 Nasal Cannula I&O- Last 24 Hours up to 6 AM 08/29/18 06:00 Intake Total 960 ml Balance 960 ml MAY SERRA MD Aug 29, 2018 13:33
[2018-08-29 15:52] LABS: BODY FLUID CULTURE Not Indicated (.); LEGIONELLA ANTIGEN URINE Negative (Negative); ORGANISM ID Not indicated. (.); SPECIMEN SOURCE Urine (.); URINE STREP PNEUMONIAE ANTIGEN Negative (Negative)
[2018-08-29 16:30] VITALS: BP 125/68
[2018-08-29 20:00] VITALS: BP 130/75
[2018-08-30] VITALS: BP 137/84
[2018-08-30 04:00] VITALS: BP 149/85
[2018-08-30] MEDS: LEVALBUTEROL 1.25 MG/0.5 ML CONCENTRATE NEB INH SCH ×5 (04:00→19:47)
[2018-08-30] MEDS: methylPREDNISolone INJ 40 MG/1 ML VIAL (J2920) IV SCH (06:06)
[2018-08-30 07:03] LABS: HEMATOCRIT 43.4 % (42.0-52.0); HEMOGLOBIN 14.5 g/dl (13.5-17.5); MEAN CORPUSCULAR HEMOGLOBIN 29.9 pg (27.0-33.0); MEAN CORPUSCULAR HGB CONC 33.4 g/dl (32.0-36.5); MEAN CORPUSCULAR VOLUME 89.5 fl (80.0-96.0); PLATELET COUNT, AUTOMATED 366 10^3/uL (150-450); RED BLOOD COUNT 4.85 10^6/uL (4.30-6.10); WHITE BLOOD COUNT 15.1 10^3/uL (4.0-10.0)
[2018-08-30 07:29] LABS: BLOOD UREA NITROGEN 21 MG/DL (7-18); CALCIUM LEVEL 7.9 MG/DL (8.5-10.1); CARBON DIOXIDE LEVEL 26 MEQ/L (21-32); CHLORIDE LEVEL 105 MEQ/L (98-107); CREATININE FOR GFR 0.78 MG/DL (0.70-1.30); GLOMERULAR FILTRATION RATE > 60.0 (>56); GLUCOSE, FASTING 95 MG/DL (70-100); MAGNESIUM LEVEL 2.6 MG/DL (1.8-2.4); POTASSIUM SERUM 4.2 MEQ/L (3.5-5.1); SODIUM LEVEL 137 MEQ/L (136-145)
[2018-08-30] MEDS: TIOTROPIUM INHALER/CAPSULE (SPIRIVA) INH SCH (08:01)
[2018-08-30] MEDS: guaiFENesin ER 600 MG TAB PO SCH ×2 (09:06→20:19)
[2018-08-30] MEDS: NICOTINE 21MG/24HR 1 EA TRANSDERMAL TD SCH (09:06)
[2018-08-30] MEDS: OSELTAMIVIR PHOSPHATE 75 MG CAP (TAMIFLU) PO SCH ×2 (09:06→20:18)
[2018-08-30] MEDS: SENOKOT S TAB PO SCH ×2 (09:06→20:18)
[2018-08-30] MEDS: ENOXAPARIN 40 MG/0.4 ML SYRINGE (J1650) SC SCH (09:06)
[2018-08-30] MEDS: METHADONE 10 MG TAB (S0109) PO SCH (09:07)
[2018-08-30 10:00] VITALS: BP 144/71
[2018-08-30 14:00] VITALS: BP 138/80
--- NOTE | 2018-08-30 15:45 | IPNPDOC ---
Text Note Date of Service The patient was seen on 08/30/18. NOTE Subjective: This is a 53-year-old gentleman with past medical history of opioid abuse on methadone and heavy smoking history who presents with chief complaint of cough, malaise, shortness of breath, subjective fevers and chills, found to be flu A positive. Patient was admitted to hospitalist service for suspected COPD exacerbation secondary to influenza A. Patient was seen and examined at the bedside. Patient noted improvement in his breathing does not report a significant cough. Denies chest pain or palpitations. Denies nausea, vomiting, abdominal pain, constipation, diarrhea or any urinary discomfort. Objective: Vitals (See below) General: Lying in bed, no acute distress, comfortable, AAOx3 HEENT: NC, AT CVS: RRR, +S1S2 Lungs: Fair air entry b/l, there is no evidence of rhonchi, wheezing or rales on auscultation Abdomen: Soft, remains undescended with Extremities: No evidence of lower extremity edema, - Calf tenderness Assessment and plan: Shortness of breath - likely 2/2 acute hypoxic respiratory failure - likely 2/2 acute COPD exacerbation - likely 2/2 influenza A - Presented to the ER with shortness of breath and wheezing - Clinically has improvement in breathing - Physical without any significant wheezing bilaterally - Labs unremarkable - Will reduce dose of Solu-Medrol; Will anticipate transition to prednisone tomorrow - c/w Oseltamivir (Day #7) - will discontinue tonight - c/w inhaled therapy is ordered Tachycardic on albuterol - Has been changed to Xopenex Smoking cessation - Advised patient about smoking cessation - Offered nicotine patch DVT prophylaxis - c/w Lovenox VS,Fishbone, I+O VS, Fishbone, I+O Laboratory Tests 08/30/18 06:54 Red Blood Count 4.85, Mean Corpuscular Volume 89.5, Mean Corpuscular Hemoglobin 29.9, Mean Corpuscular Hemoglobin Concent 33.4, Red Cell Distribution Width 13.1, Calcium Level 7.9 L Vital Signs Date Time Temp Pulse Resp B/P (MAP) Pulse Ox O2 Delivery O2 Flow Rate FiO2 08/30/18 14:00 97.4 74 20 138/80 (99) 96 08/26/18 14:00 2.0 08/24/18 23:17 Nasal Cannula I&O- Last 24 Hours up to 6 AM 08/30/18 06:00 Intake Total 2060 ml Output Total 1150 ml Balance 910 ml MAY SERRA MD Aug 30, 2018 15:45
[2018-08-30] MEDS: predniSONE 20 MG TAB PO SCH (15:48)
[2018-08-30 18:00] VITALS: BP 140/73
[2018-08-30 20:00] VITALS: BP 135/83
[2018-08-31] MEDS: LEVALBUTEROL 1.25 MG/0.5 ML CONCENTRATE NEB INH SCH ×4 (04:00→12:00)
[2018-08-31 06:00] VITALS: BP 129/80
[2018-08-31 07:58] LABS: HEMOGLOBIN 14.6 g/dl (13.5-17.5); MEAN CORPUSCULAR HEMOGLOBIN 29.9 pg (27.0-33.0); MEAN CORPUSCULAR VOLUME 88.1 fl (80.0-96.0); PLATELET COUNT, AUTOMATED 358 10^3/uL (150-450); RED BLOOD COUNT 4.88 10^6/uL (4.30-6.10)
[2018-08-31] MEDS: TIOTROPIUM INHALER/CAPSULE (SPIRIVA) INH SCH (08:20)
[2018-08-31 08:35] LABS: BLOOD UREA NITROGEN 20 MG/DL (7-18); CARBON DIOXIDE LEVEL 28 MEQ/L (21-32); CHLORIDE LEVEL 105 MEQ/L (98-107); CREATININE FOR GFR 0.72 MG/DL (0.70-1.30); GLOMERULAR FILTRATION RATE > 60.0 (>56); GLUCOSE, FASTING 81 MG/DL (70-100); MAGNESIUM LEVEL 2.6 MG/DL (1.8-2.4); POTASSIUM SERUM 4.3 MEQ/L (3.5-5.1); SODIUM LEVEL 138 MEQ/L (136-145)
[2018-08-31] MEDS ORDERED: TIOT18INH INH (08:41)
[2018-08-31] MEDS ORDERED: MUCI600T37 PO (08:41)
[2018-08-31] MEDS ORDERED: NEBUMIS2 XX (08:41)
[2018-08-31] MEDS ORDERED: LEVA12INH INH (08:41)
[2018-08-31] MEDS ORDERED: PRED10TA2 PO (08:41)
[2018-08-31 10:00] VITALS: BP 133/60
[2018-08-31] MEDS: METHADONE 10 MG TAB (S0109) PO SCH (10:02)
[2018-08-31] MEDS: SENOKOT S TAB PO SCH (10:02)
[2018-08-31] MEDS: predniSONE 20 MG TAB PO SCH (10:02)
[2018-08-31] MEDS: guaiFENesin ER 600 MG TAB PO SCH (10:02)
[2018-08-31] MEDS: ENOXAPARIN 40 MG/0.4 ML SYRINGE (J1650) SC SCH (10:03)
[2018-08-31] MEDS: NICOTINE 21MG/24HR 1 EA TRANSDERMAL TD SCH (10:03)
[2018-08-31] MEDS ORDERED: ALBU1.25 NEB (12:31)
[2018-08-31] MEDS ORDERED: VENTAER INH (14:34)
--- NOTE | 2018-08-31 14:58 | DS.PDOC ---
Discharge Summary General Date of Admission Aug 24, 2018 at 18:49 Date of Discharge 08/31/2018 Discharge Summary PROCEDURES PERFORMED DURING STAY: [None]. ADMITTING DIAGNOSES / DISCHARGE DIAGNOSES: Shortness of breath - likely 2/2 acute hypoxic respiratory failure - likely 2/2 acute COPD exacerbation - likely 2/2 influenza A Tachycardic on albuterol Smoking cessation DVT prophylaxis COMPLICATIONS/CHIEF COMPLAINT: Shortness of breath HISTORY OF PRESENT ILLNESS: This is a 53-year-old gentleman with past medical history of opioid abuse on methadone and heavy smoking history who presents with chief complaint of cough, malaise, shortness of breath, subjective fevers and chills, found to be flu A positive. Patient was admitted to hospitalist service for suspected COPD exacerbation secondary to influenza A. HOSPITAL COURSE: Shortness of breath - likely 2/2 acute hypoxic respiratory failure - likely 2/2 acute COPD exacerbation - likely 2/2 influenza A - Presented to the ER with shortness of breath and wheezing - Clinically has improvement in breathing - Physical without any adventitious lung sounds - Labs unremarkable - Has tolerated Prednisone; will continue on discharge as a taper; s/p So lumedrol - Completed Oseltamivir 7 day course - c/w inhaled therapy is ordered Tachycardic on albuterol - Has been changed to Xopenex Smoking cessation - Advised patient about smoking cessation - Offered nicotine patch DVT prophylaxis - c/w Lovenox DISCHARGE MEDICATIONS: Please see below. ALLERGIES: Please see below. PHYSICAL EXAMINATION ON DISCHARGE: Vitals (See below) General: Lying in bed, no acute distress, comfortable, AAOx3 HEENT: NC, AT CVS: RRR, +S1S2 Lungs: Fair air entry b/l, auscultation is without rhonchi / rales / wheezing Abdomen: Soft, non-distended without tenderness Extremities: No evidence of edema at LE, - Calf tenderness LABORATORY DATA: Please see below. ACTIVITY: [As tolerated]. DISCHARGE PLAN: Follow up with PCP within 7 days Remain compliant with treatment plan and medications Return to the ER if you experience any problems DISPOSITION: Home DISCHARGE CONDITION: [Stable]. TIME SPENT ON DISCHARGE: Greater than [35] minutes. Vital Signs/I&Os Vital Signs Date Time Temp Pulse Resp B/P (MAP) Pulse Ox O2 Delivery O2 Flow Rate FiO2 08/31/18 10:02 17 08/31/18 10:00 97.7 69 133/60 (84) 97 08/26/18 14:00 2.0 I&O- Last 24 Hours up to 6 AM 08/31/18 06:00 Intake Total 1080 ml Output Total 2950 ml Balance -1870 ml Laboratory Data Labs 24H Laboratory Tests 2 08/31/18 07:47: Nucleated Red Blood Cells % (auto) 0.0, Anion Gap 5L, Glomerular Filtration Rate > 60.0, Blood Urea Nitrogen 20H, Creatinine 0.72, Sodium Level 138, Potassium Level 4.3, Chloride Level 105, Carbon Dioxide Level 28, Calcium Level 8.0L, Magnesium Level 2.6H CBC/BMP Laboratory Tests 08/31/18 07:47 Red Blood Count 4.88, Mean Corpuscular Volume 88.1, Mean Corpuscular Hemoglobin 29.9, Mean Corpuscular Hemoglobin Concent 34.0, Red Cell Distribution Width 13.2, Calcium Level 8.0 L Microbiology Microbiology 08/24/18 Blood Culture - Final, Complete NO GROWTH AFTER 5 DAYS 08/24/18 Blood Culture - Final, Complete NO GROWTH AFTER 5 DAYS 08/27/18 Gram Stain - Final, Complete 08/27/18 Sputum Culture - Final, Complete Discharge Medications Scheduled (Methadone HCl) 10 Mg/Ml Con, 40 MG PO DAILY, (Reported) Albuterol Sulfate (Albuterol Sulfate) 1.25 Mg/3 Ml Neb, 1 VIAL NEB Q6H for wheezing Guaifenesin (Mucinex) 600 Mg Tab, 1,200 MG PO BID Prednisone (Prednisone) 10 Mg Tab, 10 MG PO TAPER Take 4 tabs daily x 3 days, then 3 tabs daily x 3 days, then 2 tabs daily x 3 days, then 1 tab daily x 3 days and stop Tiotropium Blaine Monohydrate (Spiriva Handihaler) 5 Inhalation/Inhaler Powd, 1 INHALATION INH DAILY@08 Allergies Coded Allergies: No Known Allergies (Unverified , 01/11/13) MAY SERRA MD Aug 31, 2018 14:57
== END 2018-08-31 14:00 | disposition home or self-care (01) | DRG 140 ==
LOC: M ED 17:00 → M ED INP 18:49 → M MS5PR 23:35 → M MS4PR 08-25 13:09
PROVIDERS: ADMIT Internal Medicine; ATTEND Internal Medicine
DX: J44.1 Chronic obstructive pulmonary disease with (acute) exacerbation (principal); J96.01 Acute respiratory failure with hypoxia; J10.1 Influenza due to other identified influenza virus with other respiratory manifestations; F11.10 Opioid abuse, uncomplicated; F17.200 Nicotine dependence, unspecified, uncomplicated; Z79.899 Other long term (current) drug therapy

== ENCOUNTER → 2018-09-26 | Outpatient (REF) | payer OTHER ==
[~2018-09-26] MED LIST changes: -/MELO7TA PO; +ALBU1.25 NEB; +LEVA12INH INH; +METH10CO PO; +MOBI4TAB PO; +MUCI600T37 PO; +NEBUMIS2 XX; +PRED10TA2 PO; +TIOT18INH INH; +VENTAER INH
[2018-09-26 13:22] LABS: BASO # 0.1 10^3/uL (0.0-0.2); BASO % 0.6 % (0.0-1.0); EOS % 0.5 % (0.0-3.0); HEMATOCRIT 41.4 % (42.0-52.0); HEMOGLOBIN 13.7 g/dl (13.5-17.5); LYMPH # 2.8 10^3/uL (1.5-4.5); LYMPH % 33.9 % (24.0-44.0); MEAN CORPUSCULAR HEMOGLOBIN 30.4 pg (27.0-33.0); MEAN CORPUSCULAR HGB CONC 33.1 g/dl (32.0-36.5); MEAN CORPUSCULAR VOLUME 91.8 fl (80.0-96.0); MONO # 0.9 10^3/uL (0.0-0.8); MONO % 11.1 % (0.0-5.0); NEUTROPHILS # 4.3 10^3/uL (1.8-7.7); PLATELET COUNT, AUTOMATED 321 10^3/uL (150-450); RED BLOOD COUNT 4.51 10^6/uL (4.30-6.10); WHITE BLOOD COUNT 8.1 10^3/uL (4.0-10.0)
[2018-09-26 13:33] LABS: ALBUMIN 3.7 GM/DL (3.2-5.2); ALT/SGPT 18 U/L (12-78); BILIRUBIN,TOTAL 0.6 MG/DL (0.2-1.0); BLOOD UREA NITROGEN 9 MG/DL (7-18); CALCIUM LEVEL 8.5 MG/DL (8.5-10.1); CARBON DIOXIDE LEVEL 26 MEQ/L (21-32); CHLORIDE LEVEL 107 MEQ/L (98-107); CREATININE FOR GFR 0.88 MG/DL (0.70-1.30); FREE T4 1.24 NG/DL (0.76-1.46); GLOMERULAR FILTRATION RATE > 60.0 (>56); GLUCOSE, FASTING 89 MG/DL (70-100); POTASSIUM SERUM 4.6 MEQ/L (3.5-5.1); SODIUM LEVEL 138 MEQ/L (136-145); THYROID STIMULATING HORMONE 0.601 uIU/ML (0.358-3.740); TOTAL PROTEIN 7.2 GM/DL (6.4-8.2)
[2018-09-26 13:51] LABS: HEMOGLOBIN A1c 5.8 %
== END ==
LOC: M SFHCPLAZ 11:12
PROVIDERS: ATTEND Physician Assistant Medical
DX: J44.9 Chronic obstructive pulmonary disease, unspecified (principal); Z68.33 Body mass index [BMI] 33.0-33.9, adult

== ENCOUNTER → 2018-09-26 | Outpatient (CLI) | payer OTHER ==
--- NOTE | 2018-09-27 01:52 | REP ---
Clinical: COPD. Technique: PA and lateral. Comparison: 08/24/2018. Findings: Mediastinum and cardiac silhouette are normal. Lung valente demonstrate chronic-appearing coarsened interstitial changes. Previously identified multifocal pneumonia has resolved. No effusion. No pneumothorax. Skeletal structures intact. Impression: Chronic-appearing coarsened interstitial markings. Previously identified bilateral infiltrates resolved. Electronically Signed by Henry Hutchins MD 09/27/2018 01:44 A
== END ==
LOC: M SMT 13:21
PROVIDERS: ATTEND Physician Assistant Medical
DX: J44.9 Chronic obstructive pulmonary disease, unspecified (principal)

== ENCOUNTER 2019-01-03 07:01 | Day surgery (SDC) | payer OTHER ==
[~2019-01-03] VITALS: Ht 172.7 cm; Wt 102.5 kg
[~2019-01-03 07:01] MED LIST changes: +CLON0.3T PO; +COMBAER6 INH; +GABA600T4 PO; +INCR1INH INH; +NS 1,000 ML IV ONE; +TIZA4TAB4 PO
[2019-01-03] MEDS ORDERED: PROPOFOL 200 MG/20 ML VIAL As Ordered ONE (07:08)
--- NOTE | 2019-01-03 08:40 | ROOR ---
Patient Name: Cyrus Miller Procedure Date: 01/03/2019 8:04 AM Date of : 1965 Age: 53 Room: [facility] Gender: Male Note Status: Finalized Procedure: Colonoscopy Indications: Screening for colorectal malignant neoplasm Providers: Rolo Szymanski MD Referring MD: Jessica LLANES Requesting Provider: Medicines: Monitored Anesthesia Care Complications: No immediate complications. Procedure: Pre-Anesthesia Assessment: - Prior to the procedure, a History and Physical was performed, and patient medications and allergies were reviewed. The patient is competent. The risks and benefits of the procedure and the sedation options and risks were discussed with the patient. All questions were answered and informed consent was obtained. Patient identification and proposed procedure were verified by the physician, the nurse and the anesthesiologist in the procedure room. Mental Status Examination: alert and oriented. Airway Examination: normal oropharyngeal airway and neck mobility. Respiratory Examination: clear to auscultation. CV Examination: normal. Prophylactic Antibiotics: The patient does not require prophylactic antibiotics. Prior Anticoagulants: The patient has taken no previous anticoagulant or antiplatelet agents. ASA Grade Assessment: II - A patient with mild systemic disease. After reviewing the risks and benefits, the patient was deemed in satisfactory condition to undergo the procedure. The anesthesia plan was to use monitored anesthesia care (MAC). Immediately prior to administration of medications, the patient was re-assessed for adequacy to receive sedatives. The heart rate, respiratory rate, oxygen saturations, blood pressure, adequacy of pulmonary ventilation, and response to care were monitored throughout the procedure. The physical status of the patient was re-assessed after the procedure. The Colonoscope was introduced through the anus and advanced to the terminal ileum, with identification of the appendiceal orifice and IC valve. The colonoscopy was performed without difficulty. The patient tolerated the procedure well. The quality of the bowel preparation was poor and inadequate. The ileocecal valve, appendiceal orifice, and rectum were photographed. Scope insertion time was 3 minutes. Scope withdrawal time was 9 minutes. The total duration of the procedure was 12 minutes. Findings: The perianal and digital rectal examinations were normal. A 4 mm polyp was found in the transverse colon. The polyp was sessile. The polyp was removed with a cold snare. Resection and retrieval were complete. Verification of patient identification for the specimen was done by the physician and nurse using the patient's name, date and medical record number. Estimated blood loss was minimal. Two sessile polyps were found in the recto-sigmoid colon. The polyps were 3 to 5 mm in size. These polyps were removed with a cold snare. Resection and retrieval were complete. Non-bleeding external and internal hemorrhoids were found during retroflexion. The hemorrhoids were small. Impression: - Preparation of the colon was poor. - Preparation of the colon was inadequate. - One 4 mm polyp in the transverse colon, removed with a cold snare. Resected and retrieved. - Two 3 to 5 mm polyps at the recto-sigmoid colon, removed with a cold snare. Resected and retrieved. - Non-bleeding external and internal hemorrhoids. Recommendation: - Patient has a contact number available for emergencies. The signs and symptoms of potential delayed complications were discussed with the patient. Return to normal activities tomorrow. Written discharge instructions were provided to the patient. - High fiber diet. - Continue present medications. - Await pathology results. - Repeat colonoscopy in 3 months because the bowel preparation was poor. - Telephone GI clinic to schedule appointment in [facility] (address [address], [address], [place], [address]) in 4 -- 6 weeks. Please call GI clinic @ [phone] for apppointment date and time. - Return to primary care physician. Rolo Szymanski MD Rolo Szymanski MD 01/03/2019 8:40:27 AM Electronically signed by Rolo Szymanski MD Number of Addenda: 0 Note Initiated On: 01/03/2019 8:04 AM Estimated Blood Loss: Estimated blood loss was minimal.
[2019-01-03 08:55] VITALS: BP 124/81
== END 2019-01-03 09:06 | disposition home or self-care (01) ==
LOC: M OPP 07:01
PROVIDERS: ATTEND Internal Medicine Gastroenterology
DX: Z12.11 Encounter for screening for malignant neoplasm of colon (principal); K64.8 Other hemorrhoids; D12.3 Benign neoplasm of transverse colon; K63.5 Polyp of colon; Z79.899 Other long term (current) drug therapy; F17.210 Nicotine dependence, cigarettes, uncomplicated

== ENCOUNTER → 2019-04-07 | Outpatient (CLI) | payer OTHER ==
[~2019-04-07] MED LIST changes: -NS 1,000 ML IV ONE
--- NOTE | 2019-04-08 02:59 | REP ---
Clinical: Bilateral knee pain. Technique: AP, lateral, bilateral oblique and sunrise views of the right and left knee. Findings: Left knee demonstrates mild age-related arthritic changes including subtle increase sclerosis to the tibial plateau and posterior patellar margin as well as early spurring/small forming osteophytes along the patella and medial tibiofemoral compartment. [place] view demonstrates fraying and sclerosis along the anterior margin of the patella suggesting associated mild patellar tendinopathy. No acute fracture or dislocation. No obvious effusion. Right knee demonstrates mild increased sclerosis along the posterior patellar margin with minimal patellofemoral joint space narrowing. [place] view demonstrates increase sclerosis and fraying along the anterior patellar margin suggesting mild patellar tendinopathy. No acute fracture or dislocation. No obvious effusion. Impression: Mild bilateral arthritic changes (left greater than right). Electronically Signed by Henry Hutchins MD 04/08/2019 02:50 A
== END ==
LOC: M SMT 11:09
PROVIDERS: ATTEND Physician Assistant Medical
DX: M17.0 Bilateral primary osteoarthritis of knee (principal)

== ENCOUNTER → 2019-04-07 | Outpatient (REF) | payer OTHER ==
[2019-04-07 13:56] LABS: HEPATITIS B SURFACE ANTIBODY POSITIVE (POSITIVE); HEPATITIS B SURFACE ANTIGEN NEGATIVE (NEGATIVE); HIV 1&2 SCREEN CENTAUR NEGATIVE (NEGATIVE)
[2019-04-11 08:06] LABS: HEPATITIS C QUANTITATION HCV Not Detected IU/mL (.); TREPONEMA ANTIBODY IgM <0.9 I.V. (.)
== END ==
LOC: M SFHCPLAZ 10:34
PROVIDERS: ATTEND Physician Assistant Medical
DX: Z72.51 High risk heterosexual behavior (principal)

== ENCOUNTER → 2019-08-05 | Outpatient (CLI) | payer OTHER ==
[~2019-08-05] MED LIST changes: +ADDE30CA3 PO; +ALBU83IN INH; +HYDR-643 PO; +PROZ20CA11 PO; +SUBO8MIS SL
--- NOTE | 2019-08-05 16:53 | REP ---
Clinical: Lung screening. History smoking. Comparison: None Technique: Axial low-dose noncontrast images from the thoracic inlet to the upper abdomen using lung screening technique. Findings: The lung valente are well-aerated. Small focus of atelectasis versus scarring suggested in the right middle lobe. No consolidation, significant nodule or mass lesion is appreciated. No pleural effusion/reaction or pneumothorax. Tracheobronchial tree is patent. Mediastinum demonstrates mild atherosclerotic changes of the coronary arteries without cardiomegaly. Impression: Findings in the right middle lobe likely represent atelectasis or chronic scar. Short-term 3 month follow-up to evaluate for resolution is recommended. Electronically Signed by Henry Hutchins MD 08/05/2019 04:45 P
== END ==
LOC: M RAD 15:37
PROVIDERS: ATTEND Physician Assistant Medical
DX: Z12.2 Encounter for screening for malignant neoplasm of respiratory organs (principal); Z87.891 Personal history of nicotine dependence

== ENCOUNTER → 2025-03-25 | Outpatient (REF) ==
[~2025-03-25] MED LIST changes: +ALBU2.5V10 INH; -ALBU83IN INH; +GABA-1490 PO; -GABA600T4 PO; -PROZ20CA11 PO; +PROZ20CA12 PO; +TIZA10TA PO; -TIZA4TAB4 PO
== END ==
LOC: M PLAIMG 11:15
PROVIDERS: ATTEND Internal Medicine
DX: R52 Pain, unspecified (principal)